=== PATIENT | male | born 1985 | race Caucasian/White ===

== ENCOUNTER 2020-06-26 09:54 | Outpatient (REF) | payer OTHER, SELFPAY ==
[2020-06-26 10:24] LABS: MANUAL DIFF FLAG NO
[2020-06-26 10:28] LABS: Basophils Percent Auto 0.6 % (0-2); Eosinophils Absolute Auto 0.1 X10*3/uL (0.0-0.4); Eosinophils Percent Auto 2.1 % (0-4); Hematocrit 42.1 % (42-52); Hemoglobin 14.8 g/dl (14.0-18.0); Imm Gran Abs Auto 0.01 X10*3/uL (0.00-0.03); Imm Gran Pct Auto 0.2 % (0.0-0.4); Lymphocytes Absolute Auto 2.1 X10*3/uL (1.2-4.9); Lymphocytes Percent Auto 43.8 % (20-40); Mean Corpuscular HGB Conc 35.2 g/dl (31.0-36.0); Mean Corpuscular Hemoglobin 30.4 pg (27.0-33.0); Mean Corpuscular Volume 86.4 fL (80-98); Mean Platelet Volume 9.5 fL (9.4-12.4); Monocytes Absolute Auto 0.2 X10*3/uL (0.1-1.2); Monocytes Percent Auto 5.1 % (2-11); Neutrophils Absolute Auto 2.3 X10*3/uL (2.0-8.3); Neutrophils Percent Auto 48.2 % (45-73); Platelet Count 260 X10*3/uL (160-400); Red Blood Count 4.87 X10*6/uL (4.60-5.80); Red Cell Distribution Width 11.9 % (11.0-16.0); White Blood Count 4.7 X10*3/uL (4.8-10.8)
[2020-06-26 10:58] LABS: Alanine Aminotransferase 96 U/L (0-40); Albumin Level 4.4 g/dL (3.5-5.0); Alkaline Phosphatase 58 U/L (39-117); Anion Gap 14 (12-20); Aspartate Amino Transferase 45 U/L (5-37); Bilirubin Direct 0.2 mg/dL (0.0-0.5); Bilirubin Total 0.6 mg/dL (0.0-1.0); Blood Urea Nitrogen 15 mg/dL (9-16); Calcium 9.3 mg/dL (8.4-10.2); Carbon Dioxide 28 mmol/L (22-29); Chloride 103 mmol/L (96-108); Cholesterol 215 mg/dL; Estimated Average Glucose 82 mg/dL; Estimated Glomerular Filt Rate > 60; Glucose Fasting 86 mg/dL (60-99); HDL Cholesterol 57 mg/dL; Hemoglobin A1c % 4.5 %; LDL Cholesterol Calculated 137 mg/dl; Potassium 4.5 mmol/L (3.3-5.1); Sodium 140 mmol/L (135-145); Total Protein 7.4 g/dL (6.5-8.0); Triglycerides 109 mg/dL
[2020-06-26 11:11] LABS: TSH reflex Free T4 1.86 uIU/mL (0.32-4.0)
== END 2020-06-26 09:55 | disposition home or self-care (01) ==
LOC: HO.LAB 09:54
PROVIDERS: PCP Internal Medicine; Visit Provider Nurse Practitioner Family
DX: Z00.00 Encounter for general adult medical examination without abnormal findings (principal)
CPT/HCPCS: 36415; 80053; 80061; 80076; 82248; 83036; 84443; 85025

== ENCOUNTER 2020-10-28 14:36 | Outpatient (REF) | payer OTHER, SELFPAY ==
[2020-10-28 15:10] LABS: Hematocrit 42.7 % (42-52); Hemoglobin 15.2 g/dl (14.0-18.0); Mean Corpuscular HGB Conc 35.6 g/dl (31.0-36.0); Mean Corpuscular Hemoglobin 30.8 pg (27.0-33.0); Mean Corpuscular Volume 86.6 fL (80-98); Mean Platelet Volume 9.9 fL (9.4-12.4); Platelet Count 286 X10*3/uL (160-400); Red Blood Count 4.93 X10*6/uL (4.60-5.80); Red Cell Distribution Width 12.4 % (11.0-16.0)
[2020-10-28 15:40] LABS: Alanine Aminotransferase 47 U/L (0-40); Albumin Level 4.3 g/dL (3.5-5.0); Alkaline Phosphatase 80 U/L (39-117); Anion Gap 13 (12-20); Aspartate Amino Transferase 28 U/L (5-37); Bilirubin Direct 0.2 mg/dL (0.0-0.5); Bilirubin Total 0.6 mg/dL (0.0-1.0); Blood Urea Nitrogen 11 mg/dL (9-16); Calcium 9.5 mg/dL (8.4-10.2); Carbon Dioxide 28 mmol/L (22-29); Chloride 104 mmol/L (96-108); Cholesterol 215 mg/dL; Estimated Glomerular Filt Rate > 60; Glucose Random 76 mg/dL (60-115); HDL Cholesterol 44 mg/dL; LDL Cholesterol Calculated 122 mg/dl; Potassium 4.7 mmol/L (3.3-5.1); Sodium 140 mmol/L (135-145); Total Protein 7.6 g/dL (6.5-8.0); Triglycerides 249 mg/dL
[2020-10-28 16:02] LABS: Thyroid Stimulating Hormone 1.11 uIU/mL (0.32-4.0)
== END 2020-10-28 14:37 | disposition home or self-care (01) ==
LOC: HO.LAB 14:36
PROVIDERS: PCP Internal Medicine; Visit Provider Internal Medicine
DX: D22.9 Melanocytic nevi, unspecified (principal)
CPT/HCPCS: 36415; 80048; 80061; 80076; 84443; 85027

== ENCOUNTER 2021-12-16 08:35 | Outpatient (REF) | payer OTHER, SELFPAY ==
[2021-12-16 09:40] LABS: Hematocrit 40.3 % (42.0-52.0); Mean Corpuscular HGB Conc 34.7 g/dl (31.0-36.0); Mean Corpuscular Hemoglobin 30.9 pg (27.0-33.0); Mean Platelet Volume 10.4 fL (9.4-12.4); Platelet Count 255 X10*3/uL (160-400); Red Blood Count 4.53 X10*6/uL (4.60-5.80); Red Cell Distribution Width 12.1 % (11.0-16.0); White Blood Count 4.4 X10*3/uL (4.8-10.8)
[2021-12-16 09:53] LABS: Appearance Urine CLEAR; Color Urine YELLOW; Glucose Urine UA NEG (NEG); Specific Gravity - Urine 1.025 (1.005-1.025); Urine Blood 2+ (NEG)
[2021-12-16 09:54] LABS: Leukocyte Esterase Urine NEG (NEG); Nitrite Urine NEG (NEG); Urine Ketones NEG (NEG); Urine Protein NEG (NEG-TRACE)
[2021-12-16 10:03] LABS: WBC Urine 0-2 /HPF (0-4)
[2021-12-16 10:03] LABS: Alanine Aminotransferase 21 U/L (0-40); Albumin Level 4.2 g/dL (3.5-5.0); Alkaline Phosphatase 73 U/L (39-117); Anion Gap 14 (12-20); Aspartate Amino Transferase 20 U/L (5-37); Bilirubin Direct 0.2 mg/dL (0.0-0.5); Bilirubin Total 0.3 mg/dL (0.0-1.0); Blood Urea Nitrogen 12 mg/dL (9-16); Calcium 8.7 mg/dL (8.4-10.2); Carbon Dioxide 25 mmol/L (22-29); Chloride 106 mmol/L (96-108); Cholesterol 164 mg/dL; Estimated Glomerular Filt Rate > 60; Glucose Random 82 mg/dL (60-115); HDL Cholesterol 43 mg/dL; LDL Cholesterol Calculated 98 mg/dl; Potassium 4.6 mmol/L (3.3-5.1); Sodium 140 mmol/L (135-145); Total Protein 6.9 g/dL (6.5-8.0); Triglycerides 116 mg/dL
[2021-12-16 10:25] LABS: Thyroid Stimulating Hormone 2.06 uIU/mL (0.32-4.0)
== END 2021-12-16 08:36 | disposition home or self-care (01) ==
LOC: HO.LAB 08:35
PROVIDERS: PCP Internal Medicine; Visit Provider Internal Medicine
DX: E78.00 Pure hypercholesterolemia, unspecified (principal)
CPT/HCPCS: 36415; 80048; 80061; 80076; 81001; 84443; 85027

== ENCOUNTER 2022-11-11 08:07 | Outpatient (REF) | payer OTHER, SELFPAY | END 2022-11-11 08:08 | disposition home or self-care (01) | LOC: HO.LAB 08:07 | PROVIDERS: PCP Internal Medicine; Visit Provider Nurse Practitioner Family | DX: Z00.00 Encounter for general adult medical examination without abnormal findings (principal); Z13.29 Encounter for screening for other suspected endocrine disorder; E78.00 Pure hypercholesterolemia, unspecified; D72.819 Decreased white blood cell count, unspecified; E66.9 Obesity, unspecified | CPT/HCPCS: 36415; 80053; 80061; 82306; 82607; 82746; 84443; 85025 ==

== ENCOUNTER 2023-10-17 14:44 | Outpatient (AMB) | payer OTHER, SELFPAY ==
--- NOTE | 2023-10-17 14:46 | A.OFFPC_ITS ---
Vital Signs 10/17/23 14:48 Height 5 ft 7 in Weight 220 lb 6 oz BMI 34.5 BP 120/78 Blood Pressure Location Lt brachial Position Sitting Pulse 48 L Pulse Source Pulse Oximeter Pulse Oximetry (%) 98 Oxygen Delivery Method Room Air Intake Visit Reasons: PE Intake Note: Patient is here today for a physical. 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: No Non Destructive Evaluation Specialist: Not Required per policy Accompanied by: Self / Same As Patient Allergies No Known Allergies Allergy (Verified 10/17/23 15:30) Medication List - Last Reconciled 10/17/23 by Rakesh Head MD albuterol sulfate 90 mcg/actuation (Ventolin HFA) 2 puffs inhalation Q4-6H PRN ascorbic acid (vitamin C) 1 g PO DAILY ashwagandha root extract 600 mg PO DAILY cholecalciferol (vitamin D3) 50 mcg PO DAILY magnesium 200 mg PO DAILY vitamin B complex 1 tab PO DAILY zinc 25 mg PO DAILY Tobacco use date assessed: 10/17/23 Dental Screening Dental Screen Date: 10/17/23 Did you have a dental visit in the last 12 months?: Yes Did you have a dental problem in the last 6 months where you did not have access to dental care?: No Was dental information given to patient?: Patient has dentist HPI PE HPI Details 38-year-old male presents to the office requesting an annual physical. [facility] Medical History (Updated 10/17/23 @ 15:32 by Rakesh Head MD) Obesity (BMI 30-39.9) Surgical History History of wisdom tooth extraction History of adenoidectomy Family History Mother No problems noted. Father No problems noted. Social History Housing: Apartment Alcohol intake: current Alcohol intake frequency: holidays/special occasions only Patient Tobacco Use Status: Never used Tobacco e-Cigarette/Vaping Use: Currently Using Second Hand Smoke Exposure: No service: No Current occupational status: employed Cognitive needs: No Hearing needs: No Vision needs: No Questionnaire PHQ-9 Over the last 2 weeks, how often have you been bothered by any of the following problems? 1. Little interest or pleasure in doing things: not at all 2. Feeling down, depressed, or hopeless: not at all 3. Trouble falling or staying asleep, or sleeping too much: not at all 4. Feeling tired or having little energy: not at all 5. Poor appetite or overeating: not at all 6. Feeling bad about yourself - or that you are a failure or have let yourself or your family down: not at all 7. Trouble concentrating on things, such as reading the newspaper or watching television: not at all 8. Moving or speaking so slowly that other people could have noticed. Or the opposite - being so fidgety or restless that you have been moving around a lot more than usual: not at all 9. Thoughts that you would be better off or of hurting yourself in some way: not at all Total score: 0 Depression Screening Interpretation: Negative Depression Screening Done: Yes Source: Developed by Drs. Blaise Pham, Nicolasa Humphries, Madi Myrick and colleagues, with an educational arnulfo from [employer]. Thrive Questionnaire Date Thrive assessed: 10/17/23 I am a: Patient What is your living situation today?: I have a steady place to live Within the past 12 months, did the food you bought not last and you didn't have the money to get more?: Never true Within the past 12 months, did you worry whether your food would run out before you got money to buy more?: Never true Do you have trouble paying for medicines?: No Do you have trouble getting transportation to medical appointments?: No Do you have trouble paying your heating and electricity bill?: No Do you have trouble taking care of your child, family member or friend?: No Do you have trouble with day-to-day activities such as bathing, preparing meals, shopping, managing finances, etc.?: No Are you currently unemployed and looking for a job?: No Are you interested in more education?: No Currently or been in a relationship where the following occur: no concerns reported THRIVE Score: 0 AUDIT C Alcohol Use Questionnaire (AUDIT-C) 1. How often do you have a drink containing alcohol?: Monthly or less 2. How many drinks containing alcohol do you have on a typical day when you are drinking?: 1 or 2 Total Score: 1 SUSAN-7 AMB Questionnaire SUSAN-7 Date SUSAN - 7 assessed: 10/17/23 Feeling nervous, anxious, or on edge: 1 = Several days Not being able to stop or control worryin = Several days Worrying too much about different things: 1 = Several days Trouble relaxin = Not at all Being so restless that it is hard to sit still: 0 = Not at all Becoming easily annoyed or irritable: 0 = Not at all Feeling afraid as if something awful might happen: 1 = Several days Total SUSAN-7 score (0-4 normal; 5-9 mild; 10-14 moderate; 15-21 severe): 4 Source: Developed by Drs. Blaise Pham, Nicolasa Humphries, Madi Myrick and colleagues, with an educational arnulfo from [employer]. Physical exam (Primary Care) Vital Signs: Last Vital Signs Pulse 48 L 10/17/23 14:48 BP 120/78 10/17/23 14:48 Pulse Ox 98 10/17/23 14:48 Oxygen Delivery Method Room Air 10/17/23 14:48 Care Plan Goal for BP management: Blood pressure is in range. On no medications. BMI result Body Mass Index 34.5 BMI Assessment/Plan discussion: High (1 lb per week weight loss suggested.) BMI High, discussed plan: lifestyle, weight reduction, dietary and physical activity Tobacco/Smoking Status: Tobacco use Status Tobacco use date assessed 10/17/23 10/17/23 14:54 Patient Tobacco Use Status Never used Tobacco 10/17/23 14:54 e-Cigarette/Vaping Use Currently Using 10/17/23 14:54 Are you ready to quit: No PHQ-9: PHQ-9 Score PHQ-9: Total score 0 10/17/23 14:54 Depression Screening Interpretation: Negative Thrive Assessment: Date of Thrive Assessment Date Thrive assessed 10/17/23 10/17/23 14:54 Currently or been in a relationship where the following occur: no concerns reported Const General: cooperative and healthy appearing Nutritional Appearance: well nourished Orientation/consciousness: patient oriented x3 Limitations: no limitations HENMT Head: Yes normal to inspection Eyes General: appearance normal, both eyes and all related structures Neck Neck: Yes normal visual inspection Chest Chest palpation & inspection: normal palpation of entire chest wall Resp Effort & Inspection: normal respiratory effort Neuro General: patient oriented x3 Assessment and Plan Assessment & Plan (1) Annual physical exam: Code(s): Z00.00 - Encounter for general adult medical examination without abnormal findings Plan: Blood work has been ordered. Will call with results of the blood work. (2) Obesity (BMI 30-39.9): Code(s): E66.9 - Obesity, unspecified Plan: Counseling on importance of diet and exercise done. Medications: Refilled albuterol sulfate 90 mcg/actuation (Ventolin HFA) 2 puffs inhalation Q4-6H PRN 8.5 grams 0RF shortness of breath or wheezing R05.9 - Cough, unspecified Coding Level of Care Code New Pt Prev Care 18-39yr([id number] Diagnoses Annual physical exam Z00.00 Obesity (BMI 30-39.9) E66.9
[2023-10-17 14:48] VITALS: BP 120/78; PULSE 48; O2SAT 98; BMI 34.5
== END 2023-10-17 15:29 | disposition home or self-care (01) ==
PROVIDERS: PCP Internal Medicine; Visit Provider Internal Medicine
DX: Z00.00 Encounter for general adult medical examination without abnormal findings (principal); E66.9 Obesity, unspecified; Z68.34 Body mass index [BMI] 34.0-34.9, adult
CPT/HCPCS: 99395

== ENCOUNTER 2023-12-19 08:01 | Outpatient (REF) | payer BC, SELFPAY ==
[2023-12-19 08:55] LABS: Appearance Urine Clear; Color Urine Dark Yellow; Glucose Urine UA Negative (Negative); Leukocyte Esterase Urine Negative (Negative); Nitrite Urine Negative (Negative); PH 6.5 (5.0-9.0); Specific Gravity - Urine 1.025 (1.005-1.025); UMIC TRIGGER UA YES; Urine Blood Moderate (2+) (Negative); Urine Ketones Trace mg/dL (Negative); Urine Protein 300 (3+) mg/dL (Neg-Trace)
[2023-12-19 08:57] LABS: Hematocrit 40.2 % (42.0-52.0); Hemoglobin 14.4 g/dl (14.0-18.0); Mean Corpuscular HGB Conc 35.8 g/dl (31.0-36.0); Mean Corpuscular Volume 86.6 fL (80.0-98.0); Mean Platelet Volume 10.1 fL (9.4-12.4); Platelet Count 278 X10*3/uL (160-400); Red Blood Count 4.64 X10*6/uL (4.60-5.80); Red Cell Distribution Width 12.3 % (11.0-16.0); White Blood Count 4.7 X10*3/uL (4.8-10.8)
[2023-12-19 08:58] LABS: Bacteria Urine None Seen (None Seen); RBC Urine >20 /HPF (0-2); Squamous Epithelial Cell Urine 0-2 /HPF (0-2); WBC Urine 0-5 /HPF (0-5)
[2023-12-19 09:30] LABS: Estimated Average Glucose 82 mg/dL; Hemoglobin A1c % 4.5 % (<6.0)
[2023-12-19 09:34] LABS: Erythrocyte Sedimentation Rate 7 MM/HR (0-15)
[2023-12-19 09:54] LABS: Alanine Aminotransferase 38 U/L (0-40); Albumin Level 4.4 g/dL (3.5-5.0); Alkaline Phosphatase 77 U/L (39-117); Anion Gap 12 (12-20); Aspartate Amino Transferase 40 U/L (5-37); Bilirubin Direct 0.2 mg/dL (0.0-0.5); Bilirubin Total 0.9 mg/dL (0.0-1.0); Blood Urea Nitrogen 17 mg/dL (9-16); Calcium 9.3 mg/dL (8.4-10.2); Carbon Dioxide 27 mmol/L (22-29); Chloride 106 mmol/L (96-108); Cholesterol 192 mg/dL (<200); Estimated Glomerular Filt Rate > 60; Glucose Random 97 mg/dL (60-115); HDL Cholesterol 42 mg/dL (>40); LDL Cholesterol Calculated 119 mg/dL (<100); Potassium 4.3 mmol/L (3.3-5.1); Sodium 141 mmol/L (135-145); Total Protein 7.6 g/dL (6.5-8.0); Triglycerides 156 mg/dL (<150)
[2023-12-19 10:15] LABS: Thyroid Stimulating Hormone 2.25 uIU/mL (0.32-4.0)
== END 2023-12-19 08:02 | disposition home or self-care (01) ==
LOC: HO.LAB 08:01
PROVIDERS: PCP Internal Medicine; Visit Provider Internal Medicine
DX: E78.00 Pure hypercholesterolemia, unspecified (principal); E66.9 Obesity, unspecified; Z13.1 Encounter for screening for diabetes mellitus
CPT/HCPCS: 36415; 80048; 80061; 80076; 81001; 83036; 84443; 85027; 85652

== ENCOUNTER 2024-01-22 15:26 | Outpatient (REF) | payer BC, SELFPAY ==
[2024-01-22 16:31] LABS: Appearance Urine Clear; Color Urine Yellow; Glucose Urine UA Negative (Negative); Leukocyte Esterase Urine Negative (Negative); Nitrite Urine Negative (Negative); PH 5.5 (5.0-9.0); UMIC TRIGGER UA YES; Urine Blood Moderate (2+) (Negative); Urine Ketones Negative (Negative); Urine Protein 100 (2+) mg/dL (Neg-Trace)
[2024-01-22 16:46] LABS: Bacteria Urine None Seen (None Seen); Hyaline Casts Urine 0-2 /LPF (0-2); Squamous Epithelial Cell Urine 0-2 /HPF (0-2); WBC Urine 0-5 /HPF (0-5)
== END 2024-01-22 15:27 | disposition home or self-care (01) ==
LOC: HO.LAB 15:26
PROVIDERS: PCP Internal Medicine; Visit Provider Internal Medicine
DX: R80.9 Proteinuria, unspecified (principal)
CPT/HCPCS: 81001

== ENCOUNTER 2024-03-04 14:58 | Outpatient (REF) | payer BC, SELFPAY ==
[2024-03-04 17:27] LABS: Appearance Urine Clear; Color Urine Yellow; Glucose Urine UA Negative (Negative); Leukocyte Esterase Urine Negative (Negative); Nitrite Urine Negative (Negative); PH 5.5 (5.0-9.0); UMIC TRIGGER UA YES; Urine Blood Moderate (2+) (Negative); Urine Ketones Negative (Negative); Urine Protein 100 (2+) mg/dL (Neg-Trace)
[2024-03-04 17:30] LABS: Bacteria Urine None Seen (None Seen); Hyaline Casts Urine 0-2 /LPF (0-2); Squamous Epithelial Cell Urine 0-2 /HPF (0-2); WBC Urine 0-5 /HPF (0-5)
[2024-03-04 17:39] LABS: Creatinine Urine 48.26 mg/dL; Total Protein Urine Random 56 mg/dL (<12)
[2024-03-05 15:33] LABS: Complement C3 128 mg/dL (82-185)
[2024-03-06 21:14] LABS: Myeloperoxidase Antibody <1.0 AI; Proteinase 3 PR3 Antibodies <1.0 AI
[2024-03-07 12:08] LABS: Anti Nuclear Antibody Screen NEGATIVE (NEGATIVE)
[2024-03-07 20:38] LABS: CK-BB None Detected (None Detected); CK-MB 0 % (<5); CK-MM 100 % (95-100); Creatine Kinase,Total,Serum 102 U/L (44-196)
== END 2024-03-04 14:59 | disposition home or self-care (01) ==
LOC: HO.LAB 14:58
PROVIDERS: Nurse Practitioner Family; PCP Internal Medicine; Referring Provider Internal Medicine; Visit Provider Internal Medicine Hypertension Specialist
DX: R80.9 Proteinuria, unspecified (principal); R31.9 Hematuria, unspecified
CPT/HCPCS: 36415; 81001; 82552; 82570; 84156; 86021; 86038; 86160

== ENCOUNTER 2024-03-04 14:58 | Outpatient (AMB) | payer BC, SELFPAY ==
--- NOTE | 2024-03-04 13:48 | HO.NEPHOV_ITS ---
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 He was referred to nephrology by his PCP for proteinuria. 12/19/23 creatinine 0.91, GFR> 60 Urine: 12/19/23 3+ protein, moderate blood (>20 RBCs), 01/22/24 2+ protein, moderate blood (3-5 RBCs) Imaging: None smoking: none marijuana: marijuana- couples times a week alcohol: Very rarely- few times a month, sometimes none at all in a month family hx: No kidney disease. Uncle is diabetic, mother and grandfather have struggled with high cholesterol. No family hx of connective tissue disease that he is aware of. medications: all OTC supplements- see chart PCP: Dr Rakesh Head Specialists:None diet, salt: he is vegan lots of carbs, does eat a fair amount of salt. Usually canned beans and tomatoes. 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 Father No problems noted. Social History Housing: Apartment Alcohol intake: current Alcohol intake frequency: holidays/special occasions only Patient Tobacco Use Status: Never used Tobacco e-Cigarette/Vaping Use: Currently Using Second Hand Smoke Exposure: No service: No Current occupational status: employed Cognitive needs: No Hearing needs: No Vision needs: No Review of Systems Const Denies headache(s), Denies lethargy, Denies malaise and Denies night sweats ENT Denies dizziness and Denies headache(s) Card Denies chest pain, Denies lightheadedness and Denies dyspnea Resp Denies dyspnea GI Denies abdominal pain Denies hematuria, Denies oliguria, Denies difficulty urinating, Denies dysuria, Denies flank pain, Denies nocturia, Denies urinary frequency and Denies urinary incontinence Musc Denies arthralgias and Denies joint swelling Skin/Breast Denies rash Neuro Denies dizziness and Denies headache(s) Physical Exam Vital Signs: Last Vital Signs Pulse 59 03/04/24 15:00 BP 138/80 03/04/24 15:00 Pulse Ox 98 03/04/24 15:00 Oxygen Delivery Method Room Air 03/04/24 15:00 BMI result Body Mass Index 35.9 Const General: healthy appearing, comfortable and no acute distress Resp Effort & Inspection: normal respiratory effort and able to speak in complete sentences Auscultation: clear to auscultation bilaterally Cardio Jugular venous distension: no JVD Rate: regular rate Rhythm: regular rhythm Heart sounds: S1 normal heart sound present, S2 normal heart sound present and no murmurs GI Palpation (GI): Soft to palpation and nontender General: Yes no CVA tenderness Back/Spine/Pelvis Back: no CVA tenderness Skin Lesions: no lesions Rashes: no rashes Extrem General: No edema Results Reviewed Nephrology Results: Hgb 14.4 g/dl (14.0-18.0) 12/19/23 WBC 4.7 X10*3/uL (4.8-10.8) L 12/19/23 Plt Count 278 X10*3/uL (160-400) 12/19/23 Sodium 141 mmol/L (135-145) 12/19/23 Potassium 4.3 mmol/L (3.3-5.1) 12/19/23 Chloride 106 mmol/L (96-108) 12/19/23 Carbon Dioxide 27 mmol/L (22-29) 12/19/23 BUN 17 mg/dL (9-16) H 12/19/23 Creatinine 0.91 mg/dL (0.5-1.4) 12/19/23 Calcium 9.3 mg/dL (8.4-10.2) 12/19/23 Urine Protein 100 (2+) mg/dL (Neg-Trace) H 03/04/24 Urine Creatinine 48.26 mg/dL 03/04/24 Assessment & Plan Assessment & Plan (1) Proteinuria: Code(s): R80.9 - Proteinuria, unspecified Category: Medical Qualifiers: Proteinuria type: unspecified Qualified Code(s): R80.9 - Proteinuria, unspecified (2) Hematuria: Code(s): R31.9 - Hematuria, unspecified Category: Medical Qualifiers: Hematuria type: asymptomatic microscopic Qualified Code(s): R31.21 - Asymptomatic microscopic hematuria Plan Patient with asymptomatic proteinuria on urine dip, microscopic hematuria will get renal ultrasound, may consider CT scan if unrevealing given microscopic hematuria will check urine protein/creatinine ratio given hematuria and mild leukopenia, will also check RHONDA, ANCA vasculitides and serum complements; will also check CPK Advised should work on hydration, healthy diet reducing carbohydrates, minimizing salt in diet to aid in blood pressure control and overall health Discussed importance of weight loss for renal and overall health, improved blood pressure He will follow up in 6 weeks in office, get blood and urine studies, renal US prior Orders: Orders Creatinine Urine 03/04/24 R31.9 - Hematuria, unspecified, R80.9 - Proteinuria, unspecified Complement C3 03/04/24 R31.9 - Hematuria, unspecified, R80.9 - Proteinuria, unspecified ANCA Vasculitides 03/04/24 R31.9 - Hematuria, unspecified, R80.9 - Proteinuria, unspecified CK, Total+Isoenzymes, Serum 03/04/24 R31.9 - Hematuria, unspecified, R80.9 - Proteinuria, unspecified US renal BI 03/04/24 R31.9 - Hematuria, unspecified, R80.9 - Proteinuria, unspecified Total Protein Urine Random 03/04/24 R31.9 - Hematuria, unspecified, R80.9 - Proteinuria, unspecified Complement C4 03/04/24 R31.9 - Hematuria, unspecified, R80.9 - Proteinuria, unspecified RHONDA Reflex Titer and Pattern 03/04/24 R31.9 - Hematuria, unspecified, R80.9 - Proteinuria, unspecified UA w Microscopic 03/04/24 R31.9 - Hematuria, unspecified, R80.9 - Proteinuria, unspecified Coding Level of Care Code New Pt Level 4 (78813) Diagnoses Proteinuria, unspecified type R80.9 Proteinuria type: unspecified Asymptomatic microscopic hematuria R31.21 Hematuria type: asymptomatic microscopic
[2024-03-04 15:00] VITALS: BP 138/80; PULSE 59; O2SAT 98; BMI 35.9
== END 2024-03-04 15:29 | disposition home or self-care (01) ==
LOC: HO.HKA 14:59
PROVIDERS: PCP Internal Medicine; Referring Provider Internal Medicine; Visit Provider Internal Medicine Hypertension Specialist
DX: R80.9 Proteinuria, unspecified (principal); R31.21 Asymptomatic microscopic hematuria
CPT/HCPCS: 99204

== ENCOUNTER 2024-03-13 16:02 | Outpatient (REF) | payer BC, SELFPAY ==
--- NOTE | ~2024-03-13 | US_ITS ---
EXAMINATION: US RETROPERITONEAL LIMITED (RENAL ONLY) CLINICAL INFORMATION: Hematuria, unspecified. COMPARISON: None available. TECHNIQUE: Real-time imaging of the kidneys. FINDINGS: RIGHT KIDNEY: 12.6 x 5.1 x 5.6 cm (SAG x AP x TRV). The kidney is normal in size, contour, and echogenicity. Renal cortical thickness is normal. No calculi or focal parenchymal lesions. No hydronephrosis. LEFT KIDNEY: 12.6 x 5.3 x 5.6 cm (SAG x AP x TRV). The kidney is normal in size, contour, and echogenicity. Renal cortical thickness is normal. No calculi or focal parenchymal lesions. No hydronephrosis. ADDITIONAL FINDINGS: The liver is hyperechoic compatible with hepatic steatosis. US/US renal BI IMPRESSION: 1. Normal-appearing kidneys. 2. Incidentally noted hepatic steatosis. Electronically signed by: Marcellus Garcia MD 03/25/2024 08:10 PM [facility]
== END 2024-03-13 16:03 | disposition home or self-care (01) ==
LOC: HO.US 16:02
PROVIDERS: PCP Internal Medicine; Visit Provider Nurse Practitioner Family
DX: R31.9 Hematuria, unspecified (principal); R80.9 Proteinuria, unspecified
CPT/HCPCS: 76775

== ENCOUNTER 2024-04-08 13:30 | Outpatient (REF) | payer BC, SELFPAY ==
[2024-04-09 04:21] LABS: HBS Num1 599.27 mIU/mL (0-7.99); HBc Num1 0.07 S/CO (0.00-0.79); HBsAGNum1 0.42 S/CO (0.00-0.99); Hepatitis B Core Antibody Nonreactive (Nonreactive); Hepatitis B Surface Antigen Negative (Negative); ~HepC Num1 0.09 S/CO (0.00-0.79); ~Hepatitis B Surface Antibody REACTIVE (Nonreactive); ~Hepatitis C Antibody Nonreactive (Nonreactive)
[2024-04-09 18:54] LABS: IgA 354 mg/dL (47-310); IgG 1273 mg/dL (600-1640); IgM 37 mg/dL (50-300)
[2024-04-11 15:54] LABS: HIV RNA PCR Qn Copies Not Detected Copies/mL; HIV RNA PCR Qn Log Copies Not Detected Log cps/mL
--- NOTE | 2024-04-19 15:54 | PC.NURSE ---
04/19/2024 Spoke with the patient regarding his history and medications. Patient denies any NSAIDs or aspirin. The importance of not taking any prn 1 week before the procedure stated. The patient verbalized an understanding.
== END 2024-04-08 13:31 | disposition home or self-care (01) ==
LOC: HO.LAB 13:30
PROVIDERS: PCP Internal Medicine; Visit Provider Nurse Practitioner Family
DX: R80.9 Proteinuria, unspecified (principal); R31.21 Asymptomatic microscopic hematuria
CPT/HCPCS: 82784; 86334; 86335; 86704; 86706; 86803; 87340; 87536; 87900

== ENCOUNTER 2024-04-08 13:30 | Outpatient (AMB) | payer BC, SELFPAY ==
[2024-04-08 13:32] VITALS: BP 126/64; PULSE 70; O2SAT 98; BMI 36.2
--- NOTE | 2024-04-08 14:00 | HO.NEPHOV_ITS ---
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 He was referred to nephrology by his PCP for proteinuria. 12/19/23 creatinine 0.91, GFR> 60 Urine: 12/19/23 3+ protein, moderate blood (>20 RBCs), 01/22/24 2+ protein, moderate blood (3-5 RBCs) smoking: none marijuana: marijuana- couples times a week alcohol: Very rarely- few times a month, sometimes none at all in a month family hx: No kidney disease. Uncle is diabetic, mother and grandfather have struggled with high cholesterol. No family hx of connective tissue disease that he is aware of. medications: all OTC supplements- see chart PCP: Dr Rkaesh Head Specialists:None diet, salt: he is vegan lots of carbs, does eat a fair amount of salt. Usually canned beans and tomatoes. 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 States he is now only taking ashwaganda PRN and not daily. [facility] Medical History (Updated 03/04/24 @ 15:38 by Ayana Lopez, DNP, INTERIOR DESIGNER-) Obesity (BMI 30-39.9) Surgical History History of wisdom tooth extraction History of adenoidectomy Family History Mother No problems noted. Father No problems noted. Social History Housing: Apartment Alcohol intake: current Alcohol intake frequency: holidays/special occasions only Patient Tobacco Use Status: Never used Tobacco e-Cigarette/Vaping Use: Currently Using Second Hand Smoke Exposure: No service: No Current occupational status: employed Cognitive needs: No Hearing needs: No Vision needs: No Review of Systems Const Denies headache(s), Denies lethargy, Denies malaise and Denies night sweats ENT Denies dizziness and Denies headache(s) Card Denies chest pain, Denies lightheadedness and Denies dyspnea Resp Denies dyspnea GI Denies abdominal pain Denies hematuria, Denies oliguria, Denies difficulty urinating, Denies dysuria, Denies flank pain, Denies nocturia, Denies urinary frequency and Denies urinary incontinence Musc Denies arthralgias and Denies joint swelling Skin/Breast Denies rash Neuro Denies dizziness and Denies headache(s) Physical Exam Const General: healthy appearing, comfortable and no acute distress Resp Effort & Inspection: normal respiratory effort and able to speak in complete sentences Auscultation: clear to auscultation bilaterally Cardio Jugular venous distension: no JVD Rate: regular rate Rhythm: regular rhythm Heart sounds: S1 normal heart sound present, S2 normal heart sound present and no murmurs GI Palpation (GI): Soft to palpation and nontender General: Yes no CVA tenderness Back/Spine/Pelvis Back: no CVA tenderness Skin Lesions: no lesions Rashes: no rashes Extrem General: No edema Results Reviewed Nephrology Results: Hgb 14.4 g/dl (14.0-18.0) 12/19/23 WBC 4.7 X10*3/uL (4.8-10.8) L 12/19/23 Plt Count 278 X10*3/uL (160-400) 12/19/23 Sodium 141 mmol/L (135-145) 12/19/23 Potassium 4.3 mmol/L (3.3-5.1) 12/19/23 Chloride 106 mmol/L (96-108) 12/19/23 Carbon Dioxide 27 mmol/L (22-29) 12/19/23 BUN 17 mg/dL (9-16) H 12/19/23 Creatinine 0.91 mg/dL (0.5-1.4) 12/19/23 Calcium 9.3 mg/dL (8.4-10.2) 12/19/23 Urine Protein 100 (2+) mg/dL (Neg-Trace) H 03/04/24 Urine Creatinine 48.26 mg/dL 03/04/24 Renal US 03/13/24 Assessment & Plan Assessment & Plan (1) Proteinuria: Code(s): R80.9 - Proteinuria, unspecified Category: Medical Qualifiers: Proteinuria type: unspecified Qualified Code(s): R80.9 - Proteinuria, unspecified (2) Hematuria: Code(s): R31.9 - Hematuria, unspecified Category: Medical Qualifiers: Hematuria type: asymptomatic microscopic Qualified Code(s): R31.21 - Asymptomatic microscopic hematuria Plan Patient with asymptomatic, persistent proteinuria, hematuria; urine protein:cr 1.16 most likely glomerulonephritis as underlying etiology given persistence of both blood and protein in urine; FSGS and IgA nephropathy on differential RHONDA, ANCA vasculitids, CPK and complements unrevealing of underlying etiology will check additional blood work including serum and urine immunofixation, Hepatitis B,C and HIV; will get renal biopsy given lack of clear etiology from imaging and blood work thus far Will start lisinopril 5mg daily for treatment of proteinuria He will return in 1 month for blood pressure check, if blood pressure tolerating, will continue to titrate up lisinopril for treatment of proteinuria Advised should work on hydration, healthy diet reducing carbohydrates, minimizing salt in diet to aid in blood pressure control and overall health Discussed importance of weight loss for renal and overall health, improved blood pressure Orders: Orders Hepatitis B Surface Antigen Today R31.21 - Asymptomatic microscopic hematuria, R80.9 - Proteinuria, unspecified Hepatitis B Core Antibody Today R31.21 - Asymptomatic microscopic hematuria, R80.9 - Proteinuria, unspecified Hepatitis C Antibody Reflex Today R31.21 - Asymptomatic microscopic hematuria, R80.9 - Proteinuria, unspecified Immunofixation Pnl, Serum Today R31.21 - Asymptomatic microscopic hematuria, R80.9 - Proteinuria, unspecified Immunofixation, Random Urine Today R31.21 - Asymptomatic microscopic hematuria, R80.9 - Proteinuria, unspecified CT biopsy renal RT Today R31.21 - Asymptomatic microscopic hematuria, R80.9 - Proteinuria, unspecified Hepatitis B Surface Antibody Today R31.21 - Asymptomatic microscopic hematuria, R80.9 - Proteinuria, unspecified HIV-1 Gen Rflx RNA Qn PCR Today R31. - Asymptomatic microscopic hematuria, R80.9 - Proteinuria, unspecified Medications: New lisinopril 5 mg PO DAILY 30 tabs 1RF R80.9 - Proteinuria, unspecified Coding Level of Care Code Est Pt Level 4 (80380) Diagnoses Proteinuria, unspecified type R80.9 Proteinuria type: unspecified Asymptomatic microscopic hematuria R31. Hematuria type: asymptomatic microscopic Time Spent (min) 30 Comment time spent assessing, counseling, documentation, chart review: 30 minutes.
== END 2024-04-08 13:58 | disposition home or self-care (01) ==
PROVIDERS: PCP Internal Medicine; Visit Provider Nurse Practitioner Family
DX: R80.9 Proteinuria, unspecified (principal); R31.21 Asymptomatic microscopic hematuria
CPT/HCPCS: 99214

== ENCOUNTER 2024-06-03 08:46 | Day surgery (SDC) | payer BC, SELFPAY ==
[2024-06-03] VITALS (17 sets, daily range): BP systolic 110–142; BP diastolic 61–89; PULSE 52–70; RESP 14–99; TEMP 36.3–36.6; O2SAT 96–100; BMI 36.5
--- NOTE | ~2024-06-03 | CT_ITS ---
Proteinuria. PROCEDURES: 1. Limited preprocedure CT of the abdomen. Permanent images saved in PACS. 2. CT-guided nontargeted biopsy of the left kidney. 3. Limited postprocedure CT of the abdomen. Permanent images saved in PACS. CLINICIANS: Alfa Cox PA-C MEDICATIONS: -Versed 1.5 mg, Fentanyl 75 mcg, and lidocaine 1% 10 mL SQ -Antibiotics: None -For additional details, please see nursing flowsheet. COMPLICATIONS: None ESTIMATED BLOOD LOSS: < 5 ml CONTRAST: None SPECIMENS: 3 x 18 g cores were placed in saline MODERATE SEDATION TIME: 25 min PROCEDURE NOTE: The procedure, risks, benefits, and alternatives were carefully explained to the patient and written informed consent was obtained. The patient was placed prone on the CT table. A timeout was performed. A limited CT of the abdomen was performed to localize the left kidney and choose appropriate needle entry and trajectory. The patient was prepped and draped in usual sterile fashion. The skin and deeper soft tissues were anesthetized with lidocaine. Under CT guidance, a 17 gauge trocar needle was advanced to the left kidney. An 18 gauge biopsy device was inserted through the trocar needle advanced into the lower pole of the kidney. A total of 3, 18 gauge cores were performed. The specimens were placed in saline. A Gelfoam slurry was then administered through the trocar needle and into the left perinephric space. The needle was removed. A dry dressing was applied and secured with Tegaderm. There were no immediate complications. The patient was stable after the procedure and was transferred to the post anesthesia care unit. The procedure was done under moderate sedation with a dedicated nurse for monitoring of vital signs. CT/CT biopsy renal LT Impression: CT-guided nontargeted left renal biopsy This procedure was performed by Alfa Cox PA-C and supervised by Dr. French. Electronically signed by: Jovani French MD 06/03/2024 02:48 PM [facility]
[2024-06-03 09:23] LABS: MANUAL DIFF FLAG NO
[2024-06-03 09:25] LABS: Eosinophils Absolute Auto 0.1 X10*3/uL (0.0-0.4); Eosinophils Percent Auto 2.9 % (0-4); Hemoglobin 13.1 g/dl (14.0-18.0); Imm Gran Abs Auto 0.02 X10*3/uL (0.00-0.03); Imm Gran Pct Auto 0.5 % (0.0-0.4); Lymphocytes Absolute Auto 1.4 X10*3/uL (1.2-4.9); Lymphocytes Percent Auto 37.8 % (20-40); Mean Corpuscular HGB Conc 35.4 g/dl (31.0-36.0); Mean Corpuscular Hemoglobin 31.3 pg (27.0-33.0); Mean Corpuscular Volume 88.5 fL (80.0-98.0); Mean Platelet Volume 9.8 fL (9.4-12.4); Monocytes Absolute Auto 0.2 X10*3/uL (0.1-1.2); Monocytes Percent Auto 5.8 % (2-11); Platelet Count 216 X10*3/uL (160-400); Red Blood Count 4.18 X10*6/uL (4.60-5.80); Red Cell Distribution Width 12.6 % (11.0-16.0); White Blood Count 3.8 X10*3/uL (4.8-10.8)
[2024-06-03 09:33] LABS: INTERNATIONAL NORM RATIO 0.9 (0.9-1.1); Prothrombin Time 9.9 SEC (10.9-12.4)
[2024-06-03 09:36] LABS: Partial Thromboplastin Time 33.5 SEC (26.0-36.8)
--- NOTE | 2024-06-03 10:31 | MHC.SHP ---
Pre-Procedural Eval Section A - 24 Hr Update-Section A only Date of Service: 06/03/24 Section B - Complete if H&P > 30 days Chief Complaint: RENAL RT-Hematuria, proteinuria Details of Present Illness: 38 y/o man with proteinuria. Nephrology requests a renal biopsy. Relevant Family History (Specify if Yes): No Relevant Social History: None Present Medications: see Short Stay Collaborative assessment Medical History: Significant History History of Previous Operations: No relevant previous surgery Allergies: Allergies Allergy/AdvReac Type Severity Reaction Status Date / Time No Known Allergies Allergy Verified 03/04/24 15:02 Review of Systems Sugical H&P ROS: Negative: Constitution, Cardiovascular and Respiratory Exam Surgical H&P Exam: Normal: Heart, Normal: Lungs, Normal: Abdomen, Normal: Skin and Normal: Neurological Plan 38 y/o man with proteinuria -Nontargeted renal biopsy Time Spent With Patient Time: Total time managing care of this patient today ____ minutes.
[2024-06-03] MEDS: fentaNYL citrate/PF 100 MCG/2 ML VIAL 50 MCG IVPUSH (10:48)
[2024-06-03] MEDS: Midazolam HCl 2 MG/2 ML VIAL 1 MG IVPUSH (10:48)
[2024-06-03] MEDS: Midazolam HCl 2 MG/2 ML VIAL 0.5 MG IVPUSH (10:55)
[2024-06-03] MEDS: fentaNYL citrate/PF 100 MCG/2 ML VIAL 25 MCG IVPUSH (10:56)
== END 2024-06-03 14:36 | disposition home or self-care (01) ==
PROVIDERS: Physician Assistant Surgical; Radiology Vascular & Interventional Radiology; PCP Internal Medicine; Visit Provider Nurse Practitioner Family
DX: R80.9 Proteinuria, unspecified (principal); R31.21 Asymptomatic microscopic hematuria; E78.00 Pure hypercholesterolemia, unspecified; E66.9 Obesity, unspecified; Z68.36 Body mass index [BMI] 36.0-36.9, adult; Z79.899 Other long term (current) drug therapy
CPT/HCPCS: 36415; 50200; 77012; 85025; 85610; 85730; 86850; 86900; 86901; 88300; 88305; 88313; 88346; 88348; 88350; 99152; 99153; J2003; J2250; J2310; J3010

== ENCOUNTER → 2024-06-03 10:08 | Outpatient (BNV) | payer BC, SELFPAY | PROVIDERS: PCP Internal Medicine; Visit Provider Physician Assistant Surgical | DX: R80.9 Proteinuria, unspecified (principal) | CPT/HCPCS: 50200; 77012 ==

== ENCOUNTER 2024-06-10 13:30 | Outpatient (REF) | payer BC, SELFPAY ==
[2024-06-10 14:27] LABS: MANUAL DIFF FLAG NO
[2024-06-10 14:59] LABS: Basophils Absolute Auto 0.1 X10*3/uL (0.0-0.2); Eosinophils Percent Auto 0.8 % (0-4); Hematocrit 36.8 % (42.0-52.0); Imm Gran Abs Auto 0.02 X10*3/uL (0.00-0.03); Imm Gran Pct Auto 0.4 % (0.0-0.4); Lymphocytes Absolute Auto 1.6 X10*3/uL (1.2-4.9); Lymphocytes Percent Auto 31.4 % (20-40); Mean Corpuscular HGB Conc 35.3 g/dl (31.0-36.0); Mean Corpuscular Hemoglobin 30.7 pg (27.0-33.0); Mean Platelet Volume 10.1 fL (9.4-12.4); Monocytes Absolute Auto 0.2 X10*3/uL (0.1-1.2); Monocytes Percent Auto 4.8 % (2-11); Neutrophils Absolute Auto 3.1 x10*3/uL (2.0-8.3); Neutrophils Percent Auto 61.6 % (45-73); Platelet Count 268 X10*3/uL (160-400); Red Blood Count 4.23 X10*6/uL (4.60-5.80); Red Cell Distribution Width 12.1 % (11.0-16.0)
[2024-06-10 15:02] LABS: Appearance Urine Clear; Color Urine Yellow; Glucose Urine UA Negative (Negative); Leukocyte Esterase Urine Negative (Negative); Nitrite Urine Negative (Negative); Specific Gravity - Urine 1.015 (1.005-1.025); UMIC TRIGGER UA YES; Urine Blood Large (3+) (Negative); Urine Ketones Negative (Negative); Urine Protein 100 (2+) mg/dL (Neg-Trace)
[2024-06-10 15:06] LABS: Bacteria Urine None Seen (None Seen); Hyaline Casts Urine 0-2 /LPF (0-2); RBC Urine >20 /HPF (0-2); Squamous Epithelial Cell Urine 0-2 /HPF (0-2); WBC Urine 0-5 /HPF (0-5)
[2024-06-10 15:29] LABS: Anion Gap 9 (12-20); Blood Urea Nitrogen 12 mg/dL (9-16); Calcium 9.4 mg/dL (8.4-10.2); Carbon Dioxide 29 mmol/L (22-29); Chloride 107 mmol/L (96-108); Estimated Glomerular Filt Rate > 60; Glucose Random 97 mg/dL (60-115); Potassium 4.1 mmol/L (3.3-5.1); Sodium 141 mmol/L (135-145)
[2024-06-10 15:41] LABS: Creatinine Urine 105.38 mg/dL; Total Protein Urine Random 58 mg/dL (<12)
== END 2024-06-10 13:31 | disposition home or self-care (01) ==
LOC: HO.LAB 13:30
PROVIDERS: PCP Internal Medicine; Visit Provider Internal Medicine Hypertension Specialist
DX: R31.21 Asymptomatic microscopic hematuria (principal); R80.9 Proteinuria, unspecified
CPT/HCPCS: 36415; 80048; 81001; 81003; 82570; 84156; 85025

== ENCOUNTER 2024-06-10 13:30 | Outpatient (AMB) | payer BC, SELFPAY ==
[2024-06-10 13:30] VITALS: BP 142/70; PULSE 74; O2SAT 97; BMI 36.2
--- NOTE | 2024-06-10 13:30 | HO.NEPHOV ---
Vital Signs 06/10/24 13:30 Height 5 ft 8 in Weight 238 lb BMI 36.2 BP 142/70 H Blood Pressure Location Lt brachial Position Sitting Pulse 74 Pulse Source Pulse Oximeter Pulse Oximetry (%) 97 Oxygen Delivery Method Room Air Intake Visit Reasons: Proteinuria-LVM Air Conditioning Unit Tester Required: No Accompanied by: Family/Other Allergies No Known Allergies Allergy (Verified 06/10/24 13:32) Medication List - Last Reconciled 06/10/24 by Bib Rodríguez MD ascorbic acid (vitamin C) 1 g PO DAILY cholecalciferol (vitamin D3) 50 mcg PO DAILY magnesium 200 mg PO DAILY vitamin B complex 1 tab PO DAILY zinc 25 mg PO DAILY HPI Comments Details: 38 y/o male with a medical history of obesity and hypercholesterolemia. He was referred to nephrology by his PCP for proteinuria. 12/19/23 creatinine 0.91, GFR> 60 Urine: 12/19/23 3+ protein, moderate blood (>20 RBCs), 01/22/24 2+ protein, moderate blood (3-5 RBCs) smoking: none marijuana: marijuana- couples times a week alcohol: Very rarely- few times a month, sometimes none at all in a month family hx: No kidney disease. Uncle is diabetic, mother and grandfather have struggled with high cholesterol. No family hx of connective tissue disease that he is aware of. medications: all OTC supplements- see chart PCP: Dr Rakesh Head Specialists:None diet, salt: he is vegan lots of carbs, does eat a fair amount of salt. Usually canned beans and tomatoes. 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 States he is now only taking ashwaganda PRN and not daily. 06/10/24 Here for follow up s/p biopsy results pending [facility] Medical History (Updated 03/04/24 @ 15:38 by Ayana Lopez, DNP, [employer]) Obesity (BMI 30-39.9) Surgical History History of wisdom tooth extraction History of adenoidectomy Family History Mother No problems noted. Father No problems noted. Social History Housing: Apartment Alcohol intake: current Alcohol intake frequency: holidays/special occasions only Patient Tobacco Use Status: Never used Tobacco e-Cigarette/Vaping Use: Currently Using Second Hand Smoke Exposure: No service: No Current occupational status: employed Cognitive needs: No Hearing needs: No Vision needs: No Physical Exam Vital Signs: Last Vital Signs Pulse 74 06/10/24 13:30 BP 142/70 H 06/10/24 13:30 Pulse Ox 97 06/10/24 13:30 Oxygen Delivery Method Room Air 06/10/24 13:30 BMI result Body Mass Index 36.2 Comfortable Neck supple no JVD. Lungs entry equal no rales. Heart S1-S2 heard no gallop or rub. Abdomen soft nontender. Neuro alert awake oriented. No asterixis. Extremities no edema. Results Reviewed Nephrology Results: Hgb 13.0 g/dl (14.0-18.0) L 06/10/24 WBC 5.0 X10*3/uL (4.8-10.8) 06/10/24 Plt Count 268 X10*3/uL (160-400) 06/10/24 Sodium 141 mmol/L (135-145) 06/10/24 Potassium 4.1 mmol/L (3.3-5.1) 06/10/24 Chloride 107 mmol/L (96-108) 06/10/24 Carbon Dioxide 29 mmol/L (22-29) 06/10/24 BUN 12 mg/dL (9-16) 06/10/24 Creatinine 0.89 mg/dL (0.5-1.4) 06/10/24 Calcium 9.4 mg/dL (8.4-10.2) 06/10/24 Urine Protein 100 (2+) mg/dL (Neg-Trace) H 06/10/24 Urine Creatinine 105.38 mg/dL 06/10/24 Renal US 03/13/24 Assessment & Plan Assessment & Plan (1) Proteinuria: Code(s): R80.9 - Proteinuria, unspecified Category: Medical Qualifiers: Proteinuria type: unspecified Qualified Code(s): R80.9 - Proteinuria, unspecified (2) Hematuria: Code(s): R31.9 - Hematuria, unspecified Category: Medical Qualifiers: Hematuria type: asymptomatic microscopic Qualified Code(s): R31.21 - Asymptomatic microscopic hematuria Plan Patient with asymptomatic, persistent proteinuria, hematuria; urine protein:cr 1.16 most likely glomerulonephritis as underlying etiology given persistence of both blood and protein in urine; FSGS and IgA nephropathy on differential RHONDA, ANCA vasculitids, CPK and complements unrevealing of underlying etiology additional blood work including serum and urine immunofixation, Hepatitis B,C and HIV were negative s/p renal biopsy given lack of clear etiology on 06/03/24 results pending Unable to tolerate lisinopril due to cough. He has not filled his prescription for losartan he wants to wait till the biopsy results are obtained. Advised should work on hydration, healthy diet reducing carbohydrates, minimizing salt in diet to aid in blood pressure control and overall health Discussed importance of weight loss for renal and overall health, improved blood pressure Orders: Orders Complete Blood Count Auto Diff 06/10/24 R31.21 - Asymptomatic microscopic hematuria, R80.9 - Proteinuria, unspecified Creatinine Urine 06/10/24 R31.21 - Asymptomatic microscopic hematuria, R80.9 - Proteinuria, unspecified Basic Metabolic Panel 06/10/24 R31.21 - Asymptomatic microscopic hematuria, R80.9 - Proteinuria, unspecified Total Protein Urine Random 06/10/24 R31.21 - Asymptomatic microscopic hematuria, R80.9 - Proteinuria, unspecified UA and rflx microscopic 06/10/24 R31.21 - Asymptomatic microscopic hematuria, R80.9 - Proteinuria, unspecified Coding Level of Care Code Est Pt Level 4 (37638) Diagnoses Proteinuria, unspecified type R80.9 Proteinuria type: unspecified Asymptomatic microscopic hematuria R31.21 Hematuria type: asymptomatic microscopic
== END 2024-06-10 13:59 | disposition home or self-care (01) ==
PROVIDERS: PCP Internal Medicine; Visit Provider Internal Medicine Hypertension Specialist
DX: R80.9 Proteinuria, unspecified (principal); R31.21 Asymptomatic microscopic hematuria
CPT/HCPCS: 99214

== ENCOUNTER 2024-07-22 14:05 | Outpatient (AMB) | payer BC, SELFPAY ==
[2024-07-22 14:08] VITALS: BP 124/82; PULSE 63; O2SAT 98; BMI 35.3
--- NOTE | 2024-07-22 14:08 | HO.NEPHOV ---
Vital Signs 07/22/24 14:08 Height 5 ft 8 in Weight 232 lb BMI 35.3 BP 124/82 Blood Pressure Location Lt brachial Position Sitting Pulse 63 Pulse Source Pulse Oximeter Pulse Oximetry (%) 98 Oxygen Delivery Method Room Air Intake Visit Reasons: Proteinuria/ LVM Rn Ostomy Required: No Accompanied by: Self / Same As Patient Allergies No Known Allergies Allergy (Verified 07/22/24 14:10) Medication List - Last Reconciled 07/22/24 by Bib Rodríguez MD ascorbic acid (vitamin C) 1 g PO DAILY cholecalciferol (vitamin D3) 50 mcg PO DAILY losartan 25 mg PO DAILY magnesium 200 mg PO DAILY vitamin B complex 1 tab PO DAILY zinc 25 mg PO DAILY HPI Comments Details: 38 y/o male with a medical history of obesity and hypercholesterolemia. He was referred to nephrology by his PCP for proteinuria. 12/19/23 creatinine 0.91, GFR> 60 Urine: 12/19/23 3+ protein, moderate blood (>20 RBCs), 01/22/24 2+ protein, moderate blood (3-5 RBCs) smoking: none marijuana: marijuana- couples times a week alcohol: Very rarely- few times a month, sometimes none at all in a month family hx: No kidney disease. Uncle is diabetic, mother and grandfather have struggled with high cholesterol. No family hx of connective tissue disease that he is aware of. medications: all OTC supplements- see chart PCP: Dr Rakesh Head Specialists:None diet, salt: he is vegan lots of carbs, does eat a fair amount of salt. Usually canned beans and tomatoes. 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 States he is now only taking ashwaganda PRN and not daily. 2/3/25 Here for follow up s/p biopsy results pending 07/22/2024. Overall is doing well. He was started taking losartan 25 mg for the past 5 weeks. No significant side effects. [facility] Medical History (Updated 07/22/24 @ 14:23 by Bib Rodríguez MD) Obesity (BMI 30-39.9) Surgical History History of wisdom tooth extraction History of adenoidectomy Family History Mother No problems noted. Father No problems noted. Social History Housing: Apartment Alcohol intake: current Alcohol intake frequency: holidays/special occasions only Patient Tobacco Use Status: Never used Tobacco e-Cigarette/Vaping Use: Currently Using Second Hand Smoke Exposure: No service: No Current occupational status: employed Cognitive needs: No Hearing needs: No Vision needs: No Physical Exam Vital Signs: Last Vital Signs Pulse 63 07/22/24 14:08 BP 124/82 07/22/24 14:08 Pulse Ox 98 07/22/24 14:08 Oxygen Delivery Method Room Air 07/22/24 14:08 BMI result Body Mass Index 35.3 Comfortable Neck supple no JVD. Lungs entry equal no rales. Heart S1-S2 heard no gallop or rub. Abdomen soft nontender. Neuro alert awake oriented. No asterixis. Extremities no edema. Results Reviewed Results Reviewed: In June 2024 urine protein creatinine ratio 0.55 Nephrology Results: Hgb 13.0 g/dl (14.0-18.0) L 06/10/24 WBC 5.0 X10*3/uL (4.8-10.8) 06/10/24 Plt Count 268 X10*3/uL (160-400) 06/10/24 Sodium 141 mmol/L (135-145) 06/10/24 Potassium 4.1 mmol/L (3.3-5.1) 06/10/24 Chloride 107 mmol/L (96-108) 06/10/24 Carbon Dioxide 29 mmol/L (22-29) 06/10/24 BUN 12 mg/dL (9-16) 06/10/24 Creatinine 0.89 mg/dL (0.5-1.4) 06/10/24 Calcium 9.4 mg/dL (8.4-10.2) 06/10/24 Urine Protein 100 (2+) mg/dL (Neg-Trace) H 06/10/24 Urine Creatinine 105.38 mg/dL 06/10/24 Renal US 03/13/24 Assessment & Plan Assessment & Plan (1) Proteinuria: Code(s): R80.9 - Proteinuria, unspecified Category: Medical Qualifiers: Proteinuria type: unspecified Qualified Code(s): R80.9 - Proteinuria, unspecified (2) Hematuria: Code(s): R31.9 - Hematuria, unspecified Category: Medical Qualifiers: Hematuria type: asymptomatic microscopic Qualified Code(s): R31.21 - Asymptomatic microscopic hematuria (3) 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 Results for International IgAN Prediction Tool at biopsy - Adults by [employer] Risk of Progression: The risk of a 50% decline in estimated GFR or progression to end-stage renal disease 5.0 years after renal biopsy is 2.51% Answers calculated to formulate result: 1. Estimated GFR at biopsy ? 90 ml/min/1.73m2 2. Systolic blood pressure at biopsy ? 140 mmHg 3. Diastolic blood pressure at biopsy ? 70 mmHg 4. Proteinuria at biopsy ? 0.55 g/day 5. Age at biopsy ? 39 Years 6. Race ? 7. Use of ZHANNA inhibitor or ARB at the time of biopsy ? No 8. MEST M-score ? 0 9. MEST E-score ? 0 10. MEST S-score ? 0 11. MEST T-score ? 0 12. Immunosuppression use at or prior to biopsy ? No 13. At how many months after renal biopsy would you like to determine risk of renal progression? ? 60 Months July 22, 2024 at 13:55 Calculated at: https://[employer]/calculator_499/lgqpwmdnszddy-sfvh-cqflnqrlps-nvbz-wt-hdyhec-adults Get Calculate by [employer] for iOS, Android and web at [email or web address]./calculate Plan Increase losartan to 50 mg daily and maximize as tolerated. Stay on low-sodium diet Maintain blood pressure less than 130/80. No absolute indication for further immunosuppression at this time. 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
== END 2024-07-22 14:24 | disposition home or self-care (01) ==
LOC: HO.HKA 14:05
PROVIDERS: PCP Internal Medicine; Visit Provider Internal Medicine Hypertension Specialist
DX: R80.9 Proteinuria, unspecified (principal); N02.B9 Other recurrent and persistent immunoglobulin A nephropathy
CPT/HCPCS: 99214

== ENCOUNTER → 2024-07-22 14:05 | Outpatient (BNVA) | payer BC, SELFPAY | PROVIDERS: PCP Internal Medicine; Visit Provider Internal Medicine Hypertension Specialist ==

== ENCOUNTER 2024-08-24 09:37 | Outpatient (REF) | payer BC, SELFPAY ==
[2024-08-24 10:41] LABS: Appearance Urine Clear; Color Urine Yellow; Glucose Urine UA Negative (Negative); Leukocyte Esterase Urine Negative (Negative); Nitrite Urine Negative (Negative); PH 5.5 (5.0-9.0); UMIC TRIGGER UA YES; Urine Blood Large (3+) (Negative); Urine Ketones Negative (Negative); Urine Protein 30 (1+) mg/dL (Neg-Trace)
[2024-08-24 10:48] LABS: Bacteria Urine None Seen (None Seen); Hyaline Casts Urine 0-2 /LPF (0-2); RBC Urine >20 /HPF (0-2); Squamous Epithelial Cell Urine 0-2 /HPF (0-2); WBC Urine 0-5 /HPF (0-5)
[2024-08-24 10:53] LABS: Total Protein Urine Random 47 mg/dL (<12)
[2024-08-24 10:55] LABS: Alanine Aminotransferase 35 U/L (0-40); Albumin Level 3.9 g/dL (3.5-5.0); Anion Gap 11 (12-20); Aspartate Amino Transferase 36 U/L (5-37); Bilirubin Total 0.4 mg/dL (0.0-1.0); Blood Urea Nitrogen 10 mg/dL (9-16); Calcium 9.1 mg/dL (8.4-10.2); Carbon Dioxide 27 mmol/L (22-29); Chloride 111 mmol/L (96-108); Cholesterol 150 mg/dL (<200); Estimated Glomerular Filt Rate > 60; Glucose Random 66 mg/dL (60-115); HDL Cholesterol 41 mg/dL (>40); LDL Cholesterol Calculated 85 mg/dL (<100); Potassium 4.5 mmol/L (3.3-5.1); Sodium 144 mmol/L (135-145); Total Protein 6.7 g/dL (6.5-8.0); Triglycerides 123 mg/dL (<150)
[2024-08-24 13:11] LABS: Alkaline Phosphatase 74 U/L (39-117)
== END 2024-08-24 09:38 | disposition home or self-care (01) ==
LOC: HO.LAB 09:37
PROVIDERS: Internal Medicine Hypertension Specialist; PCP Internal Medicine; Visit Provider Internal Medicine
DX: R80.9 Proteinuria, unspecified (principal); N02.B9 Other recurrent and persistent immunoglobulin A nephropathy
CPT/HCPCS: 36415; 80053; 80061; 81001; 82570; 84156

== ENCOUNTER 2024-08-27 15:14 | Outpatient (AMB) | payer BC, SELFPAY ==
[2024-08-27 15:15] VITALS: BP 122/80; PULSE 50; O2SAT 98; BMI 34.5
--- NOTE | 2024-08-27 15:15 | HO.NEPHOV ---
Vital Signs 08/27/24 15:15 Height 5 ft 8 in Weight 227 lb 2 oz BMI 34.5 BP 122/80 Blood Pressure Location Lt brachial Position Sitting Pulse 50 Pulse Source Pulse Oximeter Pulse Oximetry (%) 98 Oxygen Delivery Method Room Air Intake Visit Reasons: 1 MO FU/ LVM Allergies No Known Allergies Allergy (Verified 08/27/24 15:17) Medication List - Last Reconciled 08/27/24 by Bib Rodríguez MD ascorbic acid (vitamin C) 1 g PO DAILY cholecalciferol (vitamin D3) 50 mcg PO DAILY losartan 50 mg PO DAILY magnesium 200 mg PO DAILY vitamin B complex 1 tab PO DAILY zinc 25 mg PO DAILY HPI Comments Details: 39 y/o male with a medical history of obesity and hypercholesterolemia. He was referred to nephrology by his PCP for proteinuria. 12/19/23 creatinine 0.91, GFR> 60 Urine: 12/19/23 3+ protein, moderate blood (>20 RBCs), 01/22/24 2+ protein, moderate blood (3-5 RBCs) smoking: none marijuana: marijuana- couples times a week alcohol: Very rarely- few times a month, sometimes none at all in a month family hx: No kidney disease. Uncle is diabetic, mother and grandfather have struggled with high cholesterol. No family hx of connective tissue disease that he is aware of. medications: all OTC supplements- see chart PCP: Dr Rakesh Head Specialists:None diet, salt: he is vegan lots of carbs, does eat a fair amount of salt. Usually canned beans and tomatoes. 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 States he is now only taking ashwaganda PRN and not daily. 06/10/24 ;Here for follow up ;s/p biopsy ;results pending 07/22/2024. Overall is doing well. He was started taking losartan 25 mg for the past 5 weeks. No significant side effects. 08/27/24: HEre for follow up. No new issues. Tolerating Losartan 50 mg QD [facility] Medical History Obesity (BMI 30-39.9) Surgical History History of wisdom tooth extraction History of adenoidectomy Family History Mother No problems noted. Father No problems noted. Social History Housing: Apartment Alcohol intake: current Alcohol intake frequency: holidays/special occasions only Patient Tobacco Use Status: Never used Tobacco e-Cigarette/Vaping Use: Currently Using Second Hand Smoke Exposure: No service: No Current occupational status: employed Cognitive needs: No Hearing needs: No Vision needs: No Physical Exam Vital Signs: Last Vital Signs Pulse 50 08/27/24 15:15 BP 122/80 08/27/24 15:15 Pulse Ox 98 08/27/24 15:15 Oxygen Delivery Method Room Air 08/27/24 15:15 BMI result Body Mass Index 34.5 Results Reviewed Nephrology Results: Hgb 13.0 g/dl (14.0-18.0) L 06/10/24 WBC 5.0 X10*3/uL (4.8-10.8) 06/10/24 Plt Count 268 X10*3/uL (160-400) 06/10/24 Sodium 144 mmol/L (135-145) 08/24/24 Potassium 4.5 mmol/L (3.3-5.1) 08/24/24 Chloride 111 mmol/L (96-108) H 08/24/24 Carbon Dioxide 27 mmol/L (22-29) 08/24/24 BUN 10 mg/dL (9-16) 08/24/24 Creatinine 0.90 mg/dL (0.5-1.4) 08/24/24 Calcium 9.1 mg/dL (8.4-10.2) 08/24/24 Urine Protein 30 (1+) mg/dL (Neg-Trace) H 08/24/24 Urine Creatinine 99.60 mg/dL 08/24/24 Renal US 03/13/24 Assessment & Plan Assessment & Plan (1) Proteinuria: Code(s): R80.9 - Proteinuria, unspecified Category: Medical Qualifiers: Proteinuria type: unspecified Qualified Code(s): R80.9 - Proteinuria, unspecified (2) Hematuria: Code(s): R31.9 - Hematuria, unspecified Category: Medical Qualifiers: Hematuria type: asymptomatic microscopic Qualified Code(s): R31.21 - Asymptomatic microscopic hematuria (3) 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 Results for International IgAN Prediction Tool at biopsy - Adults by [employer] Risk of Progression: The risk of a 50% decline in estimated GFR or progression to end-stage renal disease 5.0 years after renal biopsy is 2.51% Answers calculated to formulate result: 1. Estimated GFR at biopsy ? 90 ml/min/1.73m2 2. Systolic blood pressure at biopsy ? 140 mmHg 3. Diastolic blood pressure at biopsy ? 70 mmHg 4. Proteinuria at biopsy ? 0.55 g/day 5. Age at biopsy ? 39 Years 6. Race ? 7. Use of ZHANNA inhibitor or ARB at the time of biopsy ? No 8. MEST M-score ? 0 9. MEST E-score ? 0 10. MEST S-score ? 0 11. MEST T-score ? 0 12. Immunosuppression use at or prior to biopsy ? No 13. At how many months after renal biopsy would you like to determine risk of renal progression? ? 60 Months Creatinine is stable Urine Pro: Cr 0.45 ( down from 0.5) Plan Increase Losartan to 100 mg daily (08/27/24) Monitor urine protein Would consider switching to Filspari Stay on low-sodium diet Maintain blood pressure less than 130/80. No absolute indication for further immunosuppression at this time. 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, R31.21 - Asymptomatic microscopic hematuria, R80.9 - Proteinuria, unspecified Basic Metabolic Panel 2 Months N02.B9 - Other recurrent and persistent immunoglobulin A nephropathy, R31.21 - Asymptomatic microscopic hematuria, R80.9 - Proteinuria, unspecified Creatinine Urine 2 Months N02.B9 - Other recurrent and persistent immunoglobulin A nephropathy, R31.21 - Asymptomatic microscopic hematuria, R80.9 - Proteinuria, unspecified Total Protein Urine Random 2 Months N02.B9 - Other recurrent and persistent immunoglobulin A nephropathy, R31.21 - Asymptomatic microscopic hematuria, R80.9 - Proteinuria, unspecified Medications: Changed From losartan 50 mg PO DAILY 90 tabs 1RF To losartan 100 mg PO DAILY 90 tabs 1RF Coding Level of Care Code Est Pt Level 4 (14631) Diagnoses Proteinuria, unspecified type R80.9 Proteinuria type: unspecified Asymptomatic microscopic hematuria R31.21 Hematuria type: asymptomatic microscopic IgA nephropathy N02.B9
== END 2024-08-27 15:30 | disposition home or self-care (01) ==
LOC: HO.HKA 15:14
PROVIDERS: PCP Internal Medicine; Visit Provider Internal Medicine Hypertension Specialist
DX: R80.9 Proteinuria, unspecified (principal); R31.21 Asymptomatic microscopic hematuria; N02.B9 Other recurrent and persistent immunoglobulin A nephropathy
CPT/HCPCS: 99214

== ENCOUNTER 2024-11-04 06:28 | Outpatient (REF) | payer BC, SELFPAY ==
[2024-11-04 08:16] LABS: Appearance Urine Clear; Color Urine Dark Yellow; Glucose Urine UA Negative (Negative); Leukocyte Esterase Urine Negative (Negative); Nitrite Urine Negative (Negative); PH 5.5 (5.0-9.0); UMIC TRIGGER UA YES; Urine Blood Moderate (2+) (Negative); Urine Ketones Trace mg/dL (Negative); Urine Protein 30 (1+) mg/dL (Neg-Trace)
[2024-11-04 08:27] LABS: Bacteria Urine None Seen (None Seen); Hyaline Casts Urine 0-2 /LPF (0-2); RBC Urine 0-2 /HPF (0-2); Squamous Epithelial Cell Urine 0-2 /HPF (0-2); WBC Urine 0-5 /HPF (0-5)
[2024-11-04 08:33] LABS: Anion Gap 11 (12-20); Blood Urea Nitrogen 16 mg/dL (9-16); Calcium 8.9 mg/dL (8.4-10.2); Carbon Dioxide 25 mmol/L (22-29); Chloride 109 mmol/L (96-108); Estimated Glomerular Filt Rate > 60; Glucose Random 88 mg/dL (60-115); Potassium 4.1 mmol/L (3.3-5.1); Sodium 141 mmol/L (135-145)
[2024-11-04 09:45] LABS: Creatinine Urine 237.01 mg/dL; Total Protein Urine Random 40 mg/dL (<12)
== END 2024-11-04 06:29 | disposition home or self-care (01) ==
LOC: HO.LAB 06:28
PROVIDERS: PCP Internal Medicine; Visit Provider Internal Medicine Hypertension Specialist
DX: R80.9 Proteinuria, unspecified (principal); N02.B9 Other recurrent and persistent immunoglobulin A nephropathy
CPT/HCPCS: 36415; 80048; 81001; 82570; 84156

== ENCOUNTER 2024-11-04 12:15 | Outpatient (AMB) | payer BC, SELFPAY ==
--- NOTE | 2024-11-04 12:16 | HO.NEPHOV ---
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 He was referred to nephrology by his PCP for proteinuria. 12/19/23 creatinine 0.91, GFR> 60 Urine: 12/19/23 3+ protein, moderate blood (>20 RBCs), 01/22/24 2+ protein, moderate blood (3-5 RBCs) smoking: none marijuana: marijuana- couples times a week alcohol: Very rarely- few times a month, sometimes none at all in a month family hx: No kidney disease. Uncle is diabetic, mother and grandfather have struggled with high cholesterol. No family hx of connective tissue disease that he is aware of. medications: all OTC supplements- see chart PCP: Dr Rakesh Head Specialists:None diet, salt: he is vegan lots of carbs, does eat a fair amount of salt. Usually canned beans and tomatoes. 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 States he is now only taking ashwaganda PRN and not daily. 06/10/24 ;Here for follow up ;s/p biopsy ;results pending 07/22/2024. Overall is doing well. He was started taking losartan 25 mg for the past 5 weeks. No significant side effects. 08/27/24: Here for follow up. No new issues. Tolerating Losartan 50 mg QD 11/04/24 The patient is a 39-year-old male presenting with IgA nephropathy and associated proteinuria. The condition has been monitored over time, with initial proteinuria levels at 550 mg/g in June, decreasing to 404 mg/g in August, and further improving to 168 mg/g currently. The patient is on losartan 100 mg, which has contributed to the reduction in proteinuria levels. The patient also reports experiencing mental health stress due to work-related issues and a family pet's illness, leading to a period of leave from work and subsequent weight gain. He denies any changes in his medication regimen and reports adherence to losartan, vitamin D, and multivitamins. The patient acknowledges the need to monitor his salt intake and maintain adequate hydration to support kidney function. Had second opinion from [facility] Medical History Obesity (BMI 30-39.9) Surgical History History of wisdom tooth extraction History of adenoidectomy Family History Mother No problems noted. Father No problems noted. Social History Housing: Apartment Alcohol intake: current Alcohol intake frequency: holidays/special occasions only Patient Tobacco Use Status: Never used Tobacco e-Cigarette/Vaping Use: Currently Using Second Hand Smoke Exposure: No service: No Current occupational status: employed Cognitive needs: No Hearing needs: No Vision needs: No Physical Exam Vital Signs: BMI result Body Mass Index 35.1 Comfortable Neck supple no JVD. Lungs entry equal no rales. Heart S1-S2 heard no gallop or rub. Abdomen soft nontender. Neuro alert awake oriented. No asterixis. Extremities no edema. Results Reviewed Results Reviewed: In June 2024 urine protein creatinine ratio 0.August: Urine Pro : cr = 0.404 11/04/24 : UPCR = 0.168 Nephrology Results: Hgb, (14.0-18.0) 13.0 g/dl L 06/10/24 WBC, (4.8-10.8) 5.0 X10*3/uL 06/10/24 Plt Count, (160-400) 268 X10*3/uL 06/10/24 Sodium, (135-145) 141 mmol/L Today Potassium, (3.3-5.1) 4.1 mmol/L Today Chloride, (96-108) 109 mmol/L H Today Carbon Dioxide, (22-29) 25 mmol/L Today BUN, (9-16) 16 mg/dL Today Creatinine, (0.5-1.4) 1.02 mg/dL Today Calcium, (8.4-10.2) 8.9 mg/dL Today Urine Protein, (Neg-Trace) 30 (1+) mg/dL H Today Urine Creatinine 237.01 mg/dL Today Renal US 03/13/24 Assessment & Plan Assessment & Plan (1) Proteinuria: Code(s): R80.9 - Proteinuria, unspecified Category: Medical Qualifiers: Proteinuria type: unspecified Qualified Code(s): R80.9 - Proteinuria, unspecified (2) IgA nephropathy: Code(s): N02.B9 - Other recurrent and persistent immunoglobulin A nephropathy Category: Medical (3) Hematuria: Code(s): R31.9 - Hematuria, unspecified Category: Medical Qualifiers: Hematuria type: asymptomatic microscopic Qualified Code(s): R31.21 - Asymptomatic microscopic hematuria Plan IgA nephropathy. Results for International IgAN Prediction Tool at biopsy - Adults by QxMD Risk of Progression: The risk of a 50% decline in estimated GFR or progression to end-stage renal disease 5.0 years after renal biopsy is 2.51% Answers calculated to formulate result: 1. Estimated GFR at biopsy ? 90 ml/min/1.73m2 2. Systolic blood pressure at biopsy ? 140 mmHg 3. Diastolic blood pressure at biopsy ? 70 mmHg 4. Proteinuria at biopsy ? 0.55 g/day 5. Age at biopsy ? 39 Years 6. Race ? 7. Use of ZHANNA inhibitor or ARB at the time of biopsy ? No 8. MEST M-score ? 0 9. MEST E-score ? 0 10. MEST S-score ? 0 11. MEST T-score ? 0 12. Immunosuppression use at or prior to biopsy ? No 13. At how many months after renal biopsy would you like to determine risk of renal progression? ? 60 Months Creatinine is stable Urine Pro: Cr 0.45 ( down from 0.5) Plan Increase Losartan to 100 mg daily (08/27/24) Monitor urine protein Would consider switching to Filspari Stay on low-sodium diet Maintain blood pressure less than 130/80. No absolute indication for further immunosuppression at this time. 11/04/24 Responding well. Urine protein excretion has decreased. Expected mild bump in creatinine after the initiation of Losartan. The patient will continue on losartan 100 mg to manage proteinuria , with regular monitoring of blood pressure and kidney function. The creatinine level, currently at 1.02 mg/dL, will be monitored, and the patient is advised to maintain adequate hydration.The patient is encouraged to monitor salt intake and maintain a balanced diet to aid in blood pressure control. Orders: Orders UA and rflx microscopic 3 Months N02.B9 - Other recurrent and persistent immunoglobulin A nephropathy, R80.9 - Proteinuria, unspecified Creatinine Urine 3 Months N02.B9 - Other recurrent and persistent immunoglobulin A nephropathy, R80.9 - Proteinuria, unspecified Basic Metabolic Panel 3 Months N02.B9 - Other recurrent and persistent immunoglobulin A nephropathy, R80.9 - Proteinuria, unspecified Total Protein Urine Random 3 Months N02.B9 - Other recurrent and persistent immunoglobulin A nephropathy, R80.9 - Proteinuria, unspecified Medications: Refilled losartan 100 mg PO DAILY 90 tabs 1RF Coding Level of Care Code Est Pt Level 4 (74430) Diagnoses Proteinuria, unspecified type R80.9 Proteinuria type: unspecified IgA nephropathy N02.B9 Asymptomatic microscopic hematuria R31.21 Hematuria type: asymptomatic microscopic
[2024-11-04 12:17] VITALS: BP 132/80; PULSE 77; O2SAT 98; BMI 35.1
== END 2024-11-04 12:30 | disposition home or self-care (01) ==
LOC: HO.HKA 12:16
PROVIDERS: PCP Internal Medicine; Visit Provider Internal Medicine Hypertension Specialist
DX: R80.9 Proteinuria, unspecified (principal); N02.B9 Other recurrent and persistent immunoglobulin A nephropathy; R31.21 Asymptomatic microscopic hematuria
CPT/HCPCS: 99214

== ENCOUNTER 2025-01-29 06:05 | Outpatient (REF) | payer BC, SELFPAY ==
--- OUTSIDE RECORDS SUMMARY | 2025-01-29 06:07 | XMS_ITS | Clinical Summary ---
Author Organization [facility] Address [address] [place] [phone] Phone Care Team Providers Care Rfid Engineer Name Role Phone Rakesh Head MD Primary Care Provid er Medications losartan (COZAAR) 50 MG tablet Take 50 mg by mouth daily. Active Social History Tobacco Use Types Packs/Day Years Used Date Smoking Tobacco: Never Smokeless Tobacco: Never Education Answer Date Recorded Are you interested in more education? Not on hollie e 04/24/2024 Are you concerned about learning? Not on file 04/24/2024 No 04/24/2024 No 04/24/2024 Digital Access Answer Date Recorded No 04/24/2024 No 04/24/2024 Reliable internet access at home? Not on file 04/24/2024 Device with a working camera? Not on file Sex and Gender Information Value Date Recorded Sex Assigned at Male 04/12/2024 11:29 AM EST Legal Sex Male 11:26 AM EST Gender Identity Male 04/12/2024 11:29 AM EST Sexual Orientation Choose not to disclose 2023 11:29 AM EST Last Filed Vital Signs Vital Sign Reading Time Taken Comments Blood Pressure 141/72 09/13/2024 12:53 PM EDT Automatic Machine Pulse 64 09/13/2024 12:53 PM EDT Temperature - - Respiratory Rate - - Oxygen Saturation 99% 09/13/2024 12: 53 PM EDT Inhaled Oxygen Concentration - - Weight 101.9 kg (224 lb 9.6 oz) 09/13/2024 12:53 PM EDT Height - - Body Mass Index - - Plan of Treatment Health Maintenance Due Date Last Done Comments CREATININE LEVEL 1984 POTASSIUM LEVEL 1984 DEPRESSION SCREENING 1996 HEPATITIS C SCREENING 2002 HIV ONE-TIME SCREENING (18-6 5 YEARS) 2002 LIPID PANEL 06/04/2015 06/04/2010 Adult Td,Tdap Booster 06/04/2020 06/04/2010 INFLUENZA VACCINE (#1) 2024 COVID-19 VACCINE (2023-2 5 season) 2025 SMOKING STATUS SCREENING (On ce After 26 Yrs) Completed 09/13/2024 HEPATITIS A VACCINES Aged Out No long er eligible based on patient's age to complete this topic HIB VACCINES Aged Out No longer eligi ble based on patient's age to complete this topic MENINGOCOCCAL VACCINES (ACWY) Aged Out No longer eligible based on patient's age to complete this topic MENINGOCOCCAL VACCINES (B) Aged Out N o longer eligible based on patient's age to complete this topic PNEUMOCOCCAL VACCINES (0-49 years) Aged Out No longer eligible based on patient's age to complete this topic Medical Devices Not on file [place] [address] [place] [address] [facility] [place] [address] [place] [address] [facility] Care Teams Rfid Engineer Relationship Specialty Start Date End Date Rakesh Head MD [address] [place] [address] [phone] PCP - General Internal Medicine 04/12/24 Additional Source Comments The information contained in this document represents components of the legal health record. It is not the complete legal health record.[facility]
[2025-01-29 07:54] LABS: Anion Gap 10 (12-20); Blood Urea Nitrogen 19 mg/dL (9-16); Calcium 9.2 mg/dL (8.4-10.2); Carbon Dioxide 27 mmol/L (22-29); Chloride 107 mmol/L (96-108); Estimated Glomerular Filt Rate > 60; Potassium 4.3 mmol/L (3.3-5.1); Sodium 140 mmol/L (135-145)
[2025-01-29 08:14] LABS: Appearance Urine Clear; Glucose Urine UA Negative (Negative); PH 6.5 (5.0-9.0); Specific Gravity - Urine 1.020 (1.005-1.025); UMIC TRIGGER UA YES
[2025-01-29 08:57] LABS: Total Protein Urine Random 49 mg/dL (<12)
== END 2025-01-29 06:06 | disposition home or self-care (01) ==
LOC: HO.LAB 06:05
PROVIDERS: PCP Internal Medicine; Visit Provider Internal Medicine Hypertension Specialist
DX: N02.B9 Other recurrent and persistent immunoglobulin A nephropathy (principal); R80.9 Proteinuria, unspecified
CPT/HCPCS: 36415; 80048; 81001; 81003; 82570; 84156

== ENCOUNTER 2025-02-03 15:05 | Outpatient (AMB) | payer BC, SELFPAY ==
[2025-02-03 15:05] VITALS: BP 148/84; PULSE 70; O2SAT 98; BMI 35.7
--- NOTE | 2025-02-03 15:05 | HO.NEPHOV ---
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 He was referred to nephrology by his PCP for proteinuria. 12/19/23 creatinine 0.91, GFR> 60 Urine: 12/19/23 3+ protein, moderate blood (>20 RBCs), 01/22/24 2+ protein, moderate blood (3-5 RBCs) smoking: none marijuana: marijuana- couples times a week alcohol: Very rarely- few times a month, sometimes none at all in a month family hx: No kidney disease. Uncle is diabetic, mother and grandfather have struggled with high cholesterol. No family hx of connective tissue disease that he is aware of. medications: all OTC supplements- see chart PCP: Dr Rakesh Head Specialists:None diet, salt: he is vegan lots of carbs, does eat a fair amount of salt. Usually canned beans and tomatoes. 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 States he is now only taking ashwaganda PRN and not daily. 06/10/24 ;Here for follow up ;s/p biopsy ;results pending 07/22/2024. Overall is doing well. He was started taking losartan 25 mg for the past 5 weeks. No significant side effects. 08/27/24: Here for follow up. No new issues. Tolerating Losartan 50 mg QD 11/04/24 The patient is a 39-year-old male presenting with IgA nephropathy and associated proteinuria. The condition has been monitored over time, with initial proteinuria levels at 550 mg/g in June, decreasing to 404 mg/g in August, and further improving to 168 mg/g currently. The patient is on losartan 100 mg, which has contributed to the reduction in proteinuria levels. The patient also reports experiencing mental health stress due to work-related issues and a family pet's illness, leading to a period of leave from work and subsequent weight gain. He denies any changes in his medication regimen and reports adherence to losartan, vitamin D, and multivitamins. The patient acknowledges the need to monitor his salt intake and maintain adequate hydration to support kidney function. [place] [facility] [place]/03/[place] - The patient is a 39-year-old male presenting with follow-up for IgA - Proteinuria: Fluctuating levels, recent measurement at 280, within limits. [facility] Medical History Obesity (BMI 30-39.9) Surgical History History of wisdom tooth extraction History of adenoidectomy Family History Mother No problems noted. Father No problems noted. Social History Housing: Apartment Alcohol intake: current Alcohol intake frequency: holidays/special occasions only Patient Tobacco Use Status: Never used Tobacco e-Cigarette/Vaping Use: Currently Using Second Hand Smoke Exposure: No service: No Current occupational status: employed Cognitive needs: No Hearing needs: No Vision needs: No Physical Exam Vital Signs: Last Vital Signs Pulse 70 02/03/25 15:05 BP 132/80 09/29/25 15:14 Pulse Ox 98 02/03/25 15:05 Oxygen Delivery Method Room Air 02/03/25 15:05 BMI result Body Mass Index 35.7 Results Reviewed Results Reviewed: January 2025 Urine protein creatinine ratio was 0.28 Nephrology Results: Hgb, (14.0-18.0) 13.0 g/dl L 06/10/24 WBC, (4.8-10.8) 5.0 X10*3/uL 06/10/24 Plt Count, (160-400) 268 X10*3/uL 06/10/24 Sodium, (135-145) 140 mmol/L 01/29/25 Potassium, (3.3-5.1) 4.3 mmol/L 01/29/25 Chloride, (96-108) 107 mmol/L 01/29/25 Carbon Dioxide, (22-29) 27 mmol/L 01/29/25 BUN, (9-16) 19 mg/dL H 01/29/25 Creatinine, (0.5-1.4) 1.08 mg/dL 01/29/25 Calcium, (8.4-10.2) 9.2 mg/dL 01/29/25 Urine Protein, (Neg-Trace) 100 (2+) mg/dL H 01/29/25 Urine Creatinine 173.54 mg/dL 01/29/25 Renal US 03/13/24 Assessment & Plan Assessment & Plan (1) Proteinuria: Code(s): R80.9 - Proteinuria, unspecified Category: Medical Qualifiers: Proteinuria type: unspecified Qualified Code(s): R80.9 - Proteinuria, unspecified (2) IgA nephropathy: Code(s): N02.B9 - Other recurrent and persistent immunoglobulin A nephropathy Category: Medical (3) Hematuria: Code(s): R31.9 - Hematuria, unspecified Category: Medical Qualifiers: Hematuria type: asymptomatic microscopic Qualified Code(s): R31.21 - Asymptomatic microscopic hematuria Plan IgA nephropathy. Results for International IgAN Prediction Tool at biopsy - Adults by QxMD Risk of Progression: The risk of a 50% decline in estimated GFR or progression to end-stage renal disease 5.0 years after renal biopsy is 2.51% Answers calculated to formulate result: 1. Estimated GFR at biopsy ? 90 ml/min/1.73m2 2. Systolic blood pressure at biopsy ? 140 mmHg 3. Diastolic blood pressure at biopsy ? 70 mmHg 4. Proteinuria at biopsy ? 0.55 g/day 5. Age at biopsy ? 39 Years 6. Race ? 7. Use of ZHANNA inhibitor or ARB at the time of biopsy ? No 8. MEST M-score ? 0 9. MEST E-score ? 0 10. MEST S-score ? 0 11. MEST T-score ? 0 12. Immunosuppression use at or prior to biopsy ? No 13. At how many months after renal biopsy would you like to determine risk of renal progression? ? 60 Months Creatinine is stable Urine Pro: Cr 0.45 ( down from 0.5) Plan Increase Losartan to 100 mg daily (08/27/24) Monitor urine protein Would consider switching to Filspari Stay on low-sodium diet Maintain blood pressure less than 130/80. No absolute indication for further immunosuppression at this time. 11/04/24 Responding well. Urine protein excretion has decreased. Expected mild bump in creatinine after the initiation of Losartan. The patient will continue on losartan 100 mg to manage proteinuria , with regular monitoring of blood pressure and kidney function. The creatinine level, currently at 1.02 mg/dL, will be monitored, and the patient is advised to maintain adequate hydration.The patient is encouraged to monitor salt intake and maintain a balanced diet to aid in blood pressure control. 02/03/2025 Overall is doing well. Serum creatinine is at 1.09. Urine protein creatinine ratio 0.28. Discussed weight loss Continue losartan. Continue to monitor renal function urine protein excretion. No absolute indication for further immunosuppression at this time Orders: Orders Creatinine Urine 4 Months N02.B9 - Other recurrent and persistent immunoglobulin A nephropathy, R80.9 - Proteinuria, unspecified Total Protein Urine Random 4 Months N02.B9 - Other recurrent and persistent immunoglobulin A nephropathy, R80.9 - Proteinuria, unspecified Basic Metabolic Panel 4 Months N02.B9 - Other recurrent and persistent immunoglobulin A nephropathy, R80.9 - Proteinuria, unspecified UA and rflx microscopic 4 Months N02.B9 - Other recurrent and persistent immunoglobulin A nephropathy, R80.9 - Proteinuria, unspecified Coding Level of Care Code Est Pt Level 4 (44989) Diagnoses Proteinuria, unspecified type R80.9 Proteinuria type: unspecified IgA nephropathy N02.B9 Asymptomatic microscopic hematuria R31.21 Hematuria type: asymptomatic microscopic
[2025-02-03 15:14] VITALS: BP 132/80
--- OUTSIDE RECORDS SUMMARY | 2025-02-03 17:12 | XMS_ITS | Clinical Summary ---
Author Organization [facility] Address [address] [place] [phone] Phone Care Team Providers Care Residential Tech Name Role Phone Rakesh Head MD Primary [...] topic Medical Devices Not on file [place] [address] [facility] [address] [place] [address] [facility] Care Teams Residential Tech Relationship Specialty Start Date End Date Rakesh Head MD [address] [place] [address] [phone] PCP - General Internal Medicine 04/12/24 Additional Source Comments The information contained in this document represents components of the legal health record. It is not the complete legal health record.[facility]
== END 2025-02-03 15:19 | disposition home or self-care (01) ==
LOC: HO.HKA 15:06
PROVIDERS: PCP Internal Medicine; Visit Provider Internal Medicine Hypertension Specialist
DX: R80.9 Proteinuria, unspecified (principal); N02.B9 Other recurrent and persistent immunoglobulin A nephropathy; R31.21 Asymptomatic microscopic hematuria
CPT/HCPCS: 99214